=== PATIENT | female | born 1960 | race Caucasian/White ===

== ENCOUNTER 2021-09-27 02:01 | Inpatient (IN) | payer OTHER ==
[~2021-09-27] VITALS: Ht 167.6 cm; Wt 73.5 kg
[2021-09-27] MEDS ORDERED: ASPIRIN 81 MG TAB.CHEW PO ONE (02:15)
[2021-09-27 02:18] VITALS: BP_SYST 94
[2021-09-27] MEDS ORDERED: ONDANSETRON HCL 4 MG/2 ML VIAL IVP ONE (02:30)
[2021-09-27] MEDS ORDERED: MORPHINE 4 MG INJ. 4 MG/ML VIAL IVP ONE (02:30)
[2021-09-27] MEDS ORDERED: FAMOTIDINE PF 20 MG/2 ML VIAL IVP ONE (02:30)
[2021-09-27 02:36] LABS: BASOPHILS # (AUTO) 0.1 K/uL (0.0-0.2); BASOPHILS % (AUTO) 0.7 % (0.0-2.0); EOSINOPHILS # (AUTO) 0.2 K/uL (0.0-0.4); EOSINOPHILS % (AUTO) 2.2 % (0.0-4.0); HEMATOCRIT 40.8 % (36-48); HEMOGLOBIN 13.7 g/dL (12.0-16.0); LYMPHOCYTES # (AUTO) 3.4 K/uL (1.0-5.5); LYMPHOCYTES % (AUTO) 36.2 % (20.5-51.5); MEAN CORPUSCULAR HEMOGLOBIN 29 pg (27-31); MEAN CORPUSCULAR HGB CONC 34 % (32-36); MEAN CORPUSCULAR VOLUME 87 fL (79.0-98.0); MONOCYTES # (AUTO) 0.7 K/uL (0.0-1.0); MONOCYTES % (AUTO) 7.4 % (1.7-9.3); NEUTROPHILS % (AUTO) 53.5 % (40.0-70.0); PLATELET COUNT (AUTO) 291 K/uL (130-430); RED BLOOD CELL COUNT(AUTO) 4.69 MIL/uL (4.2-6.2); RED CELL DISTRIBUTION WIDTH 13.1 % (9.0-15.0); WHITE BLOOD COUNT (AUTO) 9.4 K/uL (4.8-10.8)
[2021-09-27] MEDS ORDERED: MORPHINE 2 MG/ML INJ. SYRINGE ONE (02:37)
[2021-09-27] MEDS ORDERED: KETAMINE 30 MG/3 ML SYRINGE IVP ONE (02:45)
[2021-09-27] MEDS ORDERED: NACL 0.9% 1,000 ML IV ONE (02:45)
[2021-09-27] MEDS ORDERED: MORPHINE 2 MG/ML INJ. SYRINGE IVP ONE (02:45)
[2021-09-27 02:48] LABS: ANION GAP 12 (5-15); CALCIUM 9.2 mg/dL (8.4-11.0); CHLORIDE 107 mmol/L (98-107); CREATININE 0.98 mg/dL (0.55-1.30); GLUCOSE 122 mg/dL (70-99); SODIUM SERUM 144 mmol/L (136-145); UREA NITROGEN, BLOOD 17 mg/dL (8-21)
[2021-09-27 02:58] LABS: ALANINE AMINOTRANSFERASE 34 U/L (12-78); ALBUMIN 3.6 g/dL (3.4-4.8); ASPARTATE AMINOTRANSFERASE 25 U/L (10-37); LIPASE 287 U/L (73-393); TOTAL BILIRUBIN 0.1 mg/dL (0.0-1.0)
[2021-09-27 02:59] LABS: GFR AFRICAN AMERICAN 75 mL/min (>90)
[2021-09-27] MEDS ORDERED: LORazepam 2 MG/ML VIAL ONE (03:13)
[2021-09-27] MEDS ORDERED: KCL 20 mEq in 100 mL (PREMIX) 100 ML IV ONE (03:15)
[2021-09-27] MEDS ORDERED: LORazepam 2 MG/ML VIAL IVP ONE (03:15)
[2021-09-27] MEDS ORDERED: MAGNESIUM SULFATE 50 ML IV ONE (03:15)
[2021-09-27] MEDS ORDERED: iohexoL 350 mgI/mL, 100 ML INFUS..BTL IV ONE (03:28)
[2021-09-27] MEDS ORDERED: ASPIRIN 81 MG TAB.CHEW ONE (06:50)
[2021-09-27] MEDS ORDERED: PREG75CA PO (07:34)
[2021-09-27] MEDS ORDERED: ONDANSETRON HCL 4 MG/2 ML VIAL IVP PRN (08:00)
[2021-09-27 08:30] VITALS: BP_SYST 137
[2021-09-27] MEDS: POTASSIUM CHLORIDE 20 MEQ in D5NS 1,000 ML IV SCH ×2 (10:18→20:28)
[2021-09-27] MEDS ORDERED: PANTOPRAZOLE SODIUM 40 MG/VIAL (PROTONIX) IVP ONE (11:30)
[2021-09-27 12:00] VITALS: BP_SYST 132
[2021-09-27] MEDS ORDERED: PANTOPRAZOLE SODIUM 40 MG/VIAL (PROTONIX) IVP SCH (17:15)
[2021-09-27 17:28] VITALS: BP_SYST 139
[2021-09-27 20:00] VITALS: BP_SYST 135
[2021-09-27] MEDS: PANTOPRAZOLE SODIUM 40 MG/VIAL (PROTONIX) IVP SCH (20:27)
[2021-09-27] MEDS: KETOROLAC TROMETHAMINE 15 MG VIAL IVP PRN (23:17)
[2021-09-28] VITALS: BP_SYST 121
[2021-09-28 06:49] LABS: BASOPHILS % (AUTO) 0.4 % (0.0-2.0); EOSINOPHILS # (AUTO) 0.1 K/uL (0.0-0.4); EOSINOPHILS % (AUTO) 1.2 % (0.0-4.0); HEMATOCRIT 38.5 % (36-48); HEMOGLOBIN 13.1 g/dL (12.0-16.0); LYMPHOCYTES # (AUTO) 2.5 K/uL (1.0-5.5); MEAN CORPUSCULAR HEMOGLOBIN 30 pg (27-31); MEAN CORPUSCULAR HGB CONC 34 % (32-36); MEAN CORPUSCULAR VOLUME 87 fL (79.0-98.0); MONOCYTES # (AUTO) 0.7 K/uL (0.0-1.0); MONOCYTES % (AUTO) 7.3 % (1.7-9.3); NEUTROPHILS # (AUTO) 6.5 K/uL (1.8-7.7); NEUTROPHILS % (AUTO) 66.1 % (40.0-70.0); PLATELET COUNT (AUTO) 236 K/uL (130-430); RED BLOOD CELL COUNT(AUTO) 4.43 MIL/uL (4.2-6.2); RED CELL DISTRIBUTION WIDTH 12.9 % (9.0-15.0); WHITE BLOOD COUNT (AUTO) 9.9 K/uL (4.8-10.8)
[2021-09-28 07:25] LABS: CALCIUM 8.2 mg/dL (8.4-11.0); CREATININE 0.81 mg/dL (0.55-1.30); POTASSIUM 3.4 mmol/L (3.5-5.1)
[2021-09-28] MEDS ORDERED: DIPHENHYDRAMINE INJ 50 MG/ML VIAL ONE (07:44)
[2021-09-28] MEDS ORDERED: fentaNYL CITRATE/PF 100 MCG/2 ML AMP ONE (07:44)
[2021-09-28] MEDS ORDERED: MIDAZOLAM HCL 5 MG/5 ML VIAL ONE (07:44)
[2021-09-28 07:47] LABS: INR 0.9 (0.8-1.2); PROTHROMBIN TIME 9.5 SECS (9.5-12.5)
[2021-09-28 08:00] VITALS: BP_SYST 131
[2021-09-28 12:00] VITALS: BP_SYST 138
[2021-09-28] MEDS: PANTOPRAZOLE SODIUM 40 MG/VIAL (PROTONIX) IVP SCH ×2 (12:26→21:00)
[2021-09-28] MEDS: KETOROLAC TROMETHAMINE 15 MG VIAL IVP PRN ×2 (15:33→22:41)
[2021-09-28 15:38] VITALS: BP_SYST 118
[2021-09-28 20:00] VITALS: BP_SYST 132
[2021-09-28] MEDS: POTASSIUM CHLORIDE 20 MEQ in D5NS 1,000 ML IV SCH (23:57)
[2021-09-29] VITALS: BP_SYST 108
[2021-09-29 08:00] VITALS: BP_SYST 136
[2021-09-29] MEDS: PANTOPRAZOLE SODIUM 40 MG/VIAL (PROTONIX) IVP SCH (09:35)
[2021-09-29] MEDS: POTASSIUM CHLORIDE 20 MEQ in D5NS 1,000 ML IV SCH ×2 (09:37→13:52)
[2021-09-29 13:16] VITALS: BP_SYST 122
[2021-09-29 14:30] VITALS: BP_SYST 136
[2021-09-29] MEDS ORDERED: PANTOPRAZOLE SODIUM 40 MG TAB PO ONE (14:45)
[2021-09-29 16:00] VITALS: BP_SYST 125
== END 2021-09-29 15:05 | disposition home or self-care (01) | DRG 384 ==
LOC: SED 02:01 → SMU 07:46
PROVIDERS: ADMIT Family Medicine; ATTEND Family Medicine
PROC: 0DB78ZX Excision of Stomach, Pylorus, Via Natural or Artificial Opening Endoscopic, Diagnostic (ICD-10-PCS; 2021-09-28)
PROC: 0DB98ZX Excision of Duodenum, Via Natural or Artificial Opening Endoscopic, Diagnostic (ICD-10-PCS; principal; 2021-09-28 09:40)
DX: K25.9 Gastric ulcer, unspecified as acute or chronic, without hemorrhage or perforation (principal); K44.9 Diaphragmatic hernia without obstruction or gangrene; R74.01 Elevation of levels of liver transaminase levels; G62.9 Polyneuropathy, unspecified; Z20.822 Contact with and (suspected) exposure to COVID-19; M17.0 Bilateral primary osteoarthritis of knee; Z88.8 Allergy status to other drugs, medicaments and biological substances; Z79.899 Other long term (current) drug therapy
CPT/HCPCS: 36415; 43239; 71045; 71275; 72191; 74175; 76376; 80048; 80053; 83605; 83690; 83735; 83880; 84484; 85025; 85610-TC; 88305; 88312; 88313; 93005; 96365; 96366; 96368; 96375; 96376; 99285; C9113; J1200; J1885; J2060; J2250; J2270; J2405; J3010; J3475; J3480; J3490; J7042; Q9967